=== PATIENT | female | born 1960 | race Caucasian/White ===

== ENCOUNTER → 2019-04-09 07:12 | Outpatient (CLI) | payer OTHER ==
[~2019-04-09 07:12] MED LIST: ULTRACET PO
== END | disposition home or self-care (01) ==
LOC: LAB 07:12
DX: D68.8 Other specified coagulation defects (principal); D50.8 Other iron deficiency anemias; D51.8 Other vitamin B12 deficiency anemias; I10 Essential (primary) hypertension; D68.0 Von Willebrand disease; E56.1 Deficiency of vitamin K